=== PATIENT | male | born 1965 | race Caucasian/White ===

== ENCOUNTER 2017-01-30 01:56 | Emergency (ER) | payer OTHER, MEDICARE ==
[~2017-01-30] VITALS: Ht 182.9 cm; Wt 60.4 kg
[~2017-01-30 01:56] MED LIST: AMLODIPINE5 MG PO; AMOXICILLIN/PO500 MG PO; APRISO0.375 GM PO; AUGMENTIN875TAB PO; B-121000 MC1 PO; CIMZIA200 MG/ML SC; CIPROFLOXACN500 MG PO; HUMIRA SC; HYDROCO/APAP1 TA9 PO; LORTAB 10-325 M1 TAB PO; LORTAB 5/3255 MG PO; LORTAB5 PO; MERCAPTOPUR50 MG PO; METRONIDAZOLE500 MG PO; NO MEDS; PREDNISONE10 MG PO
[2017-01-30] MEDS ORDERED: TAMSULOSIN HCL0.4 MG PO (02:08)
[2017-01-30] MEDS ORDERED: METOPROL TAR25 MG PO (02:09)
[2017-01-30] MEDS ORDERED: ROBAXIN-750750 MG PO (02:09)
[2017-01-30] MEDS ORDERED: FLEXERIL PO (03:08)
[2017-01-30] MEDS ORDERED: NAPROSYN500 MG PO (03:08)
[2017-01-30 03:20] VITALS: BP 133/83
== END 2017-01-30 03:20 | DRG 552 ==
LOC: ED 01:56
DX: S16.1XXA Strain of muscle, fascia and tendon at neck level, initial encounter (principal); S33.5XXA Sprain of ligaments of lumbar spine, initial encounter; K50.90 Crohn's disease, unspecified, without complications; F17.210 Nicotine dependence, cigarettes, uncomplicated; G89.29 Other chronic pain; I10 Essential (primary) hypertension; M54.9 Dorsalgia, unspecified; V59.40XA Driver of pick-up truck or van injured in collision with unspecified motor vehicles in traffic accident, initial encounter